=== PATIENT | male | born 1990 | race Caucasian/White ===

== ENCOUNTER 2022-12-17 12:23 | Emergency (ER) | payer OTHER ==
[~2022-12-17] VITALS: Ht 175.2 cm; Wt 131.5 kg
[2022-12-17] MEDS ORDERED: CYCLOBENZAPRINE10 MG PO (14:02)
[2022-12-17] MEDS ORDERED: MELOXICAM15 MG PO (14:02)
== END 2022-12-17 14:18 | disposition home or self-care (01) ==
LOC: ED 12:23
DX: S29.012A Strain of muscle and tendon of back wall of thorax, initial encounter (principal); X50.1XXA Overexertion from prolonged static or awkward postures, initial encounter; X50.0XXA Overexertion from strenuous movement or load, initial encounter; Y93.89 Activity, other specified; Y92.89 Other specified places as the place of occurrence of the external cause; Y99.8 Other external cause status